=== PATIENT | female | born 1990 | race Two or more races ===

== ENCOUNTER 2020-11-16 14:51 | Emergency (ER) | payer BC ==
[~2020-11-16] VITALS: Ht 160 cm; Wt 63.5 kg
[2020-11-16 15:02] VITALS: BP 106/62
[2020-11-16] MEDS ORDERED: ACETAMINOPHEN 325 MG TABLET PO ONE (15:30)
[2020-11-16] MEDS ORDERED: ACETAMINOPHEN 325 MG TABLET ONE (15:47)
== END 2020-11-16 16:44 | disposition home or self-care (01) ==
LOC: ER 14:58
DX: S52.592A Other fractures of lower end of left radius, initial encounter for closed fracture (principal); S52.572A Other intraarticular fracture of lower end of left radius, initial encounter for closed fracture; V49.49XA Driver injured in collision with other motor vehicles in traffic accident, initial encounter; Y93.89 Activity, other specified; Y92.488 Other paved roadways as the place of occurrence of the external cause; Y99.8 Other external cause status
CPT/HCPCS: 72040-TC; 73110

== ENCOUNTER 2021-01-30 12:53 | Emergency (ER) | payer BC ==
[~2021-01-30] VITALS: Ht 160 cm; Wt 63.5 kg
--- NOTE | 2021-01-30 13:29 | NUR ---
DR. GARVEY AT BEDSIDE WITH A FEMALE ICE PULLER. NO TAMPON WAS FOUND, ONLY A STRING FROM IUD.
--- NOTE | 2021-01-30 13:45 | NUR ---
Patient discharged to home in stable condition. Written and verbal after care instructions given. Patient verbalizes understanding of instruction.
[2021-01-30 13:46] VITALS: BP 112/56
== END 2021-01-30 13:46 | disposition home or self-care (01) ==
LOC: ER 12:53
DX: T19.2XXA Foreign body in vulva and vagina, initial encounter (principal); X58.XXXA Exposure to other specified factors, initial encounter; Y93.89 Activity, other specified; Y92.89 Other specified places as the place of occurrence of the external cause; Y99.8 Other external cause status
CPT/HCPCS: 99284; A6403